=== PATIENT | female | born 1940 | race Caucasian/White ===

== ENCOUNTER 2016-05-28 07:25 | Day surgery (SDC) | payer OTHER ==
[~2016-05-28] VITALS: Ht 160 cm; Wt 81.6 kg
[~2016-05-28 07:25] MED LIST: DABI150C PO; LOSA100T27 PO; METO-158 PO; TRAM50TA2 PO; ZOLP10TA6 PO
[2016-05-28] MEDS ORDERED: LIDOCAINE VISCOUS 2% 15ML UD ONE (08:19)
[2016-05-28] MEDS ORDERED: MIDAZOLAM HCL 1MG/1ML-2 ML VIAL ONE (08:20)
[2016-05-28] MEDS ORDERED: fentaNYL CITRATE 100 MCG/2 ML VL ONE (08:20)
[2016-05-28] MEDS ORDERED: NALOXONE HCL 0.4 MG/ML VIAL ONE (08:27)
[2016-05-28] MEDS ORDERED: FLUMAZENIL 0.1 MG/ML INJ 10ML MDV IV ONE ×2 (08:27→08:30)
[2016-05-28] MEDS ORDERED: DABIGATRAN 75 MG CAP PO ONE (08:30)
[2016-05-28] MEDS ORDERED: LIDOCAINE VISCOUS 2% 15ML UD PO ONE (08:30)
[2016-05-28] MEDS ORDERED: fentaNYL CITRATE 100 MCG/2 ML VL IV ONE (08:30)
[2016-05-28] MEDS ORDERED: NALOXONE HCL 0.4 MG/ML VIAL IV ONE (08:30)
[2016-05-28] MEDS ORDERED: MIDAZOLAM HCL 1MG/1ML-2 ML VIAL IV ONE (08:30)
[2016-05-28] MEDS ORDERED: diphenhdrAMINE HCL 50 MG/1 ML VL ONE (08:44)
== END 2016-05-28 11:31 | disposition home or self-care (01) ==
LOC: CATH 07:25
PROVIDERS: ATTEND Internal Medicine
DX: I34.0 Nonrheumatic mitral (valve) insufficiency (principal)
CPT/HCPCS: 92960; 93005; 93312; J1200; J2250; J3010

== ENCOUNTER → 2016-08-23 | Day surgery (SDC) | payer OTHER ==
[~2016-08-23] VITALS: Ht 160 cm; Wt 79.4 kg
[~2016-08-23] MED LIST changes: +AMIO200T33 PO; +DABIGATRAN 75 MG CAP PO ONE; +LIDOCAINE VISCOUS 2% 15ML UD ONE; +LIDOCAINE VISCOUS 2% 15ML UD PO ONE; +METO25TA5 PO; +MIDAZOLAM HCL 1MG/1ML-2 ML VIAL IM ONE; +MIDAZOLAM HCL 1MG/1ML-2 ML VIAL ONE; +NALOXONE HCL 0.4 MG/ML VIAL ONE; +TRAM-300 PO; +ZOLP5TAB5 PO; +diphenhdrAMINE HCL 50 MG/1 ML VL ONE; +fentaNYL CITRATE 100 MCG/2 ML VL IV ONE; +fentaNYL CITRATE 100 MCG/2 ML VL ONE
== END ==
LOC: CATH 07:50
PROVIDERS: ATTEND Internal Medicine
DX: I48.91 Unspecified atrial fibrillation (principal)
CPT/HCPCS: 92960; 93312; J1200; J2250; J3010; J7030